=== PATIENT | male | born 1990 | race Caucasian/White ===

== ENCOUNTER 2024-04-09 23:12 | Emergency (ER) | payer SELFPAY ==
[~2024-04-09] VITALS: Ht 175.3 cm; Wt 73.0 kg
[2024-04-09 23:20] VITALS: TEMP 99; O2SAT 100
[2024-04-09] MEDS: TETANUS, DIPHTHERIA, PERTUSSIS VAC/PF 0.5ML (>10YR OLD) IM ONE (23:44)
[2024-04-09] MEDS: IBUPROFEN 600MG TABLET PO ONE (23:44)
[2024-04-10] MEDS ORDERED: BO1 TP (01:22)
[2024-04-10] MEDS ORDERED: IBUP-2029 MT (01:22)
[2024-04-10 01:33] VITALS: BP 128/94; PULSE 76; RESP 19
== END 2024-04-10 01:56 | disposition home or self-care (01) ==
LOC: ER 23:27
DX: S09.90XA Unspecified injury of head, initial encounter (principal); Y08.89XA Assault by other specified means, initial encounter; Y93.89 Activity, other specified; Y92.89 Other specified places as the place of occurrence of the external cause; Y99.8 Other external cause status
CPT/HCPCS: 90471; 90715; 99285

== ENCOUNTER 2024-08-25 22:33 | Emergency (ER) | payer SELFPAY ==
[~2024-08-25] VITALS: Ht 175.3 cm; Wt 73.0 kg
[~2024-08-25 22:33] MED LIST: BO1 TP; IBUP-2029 MT
[2024-08-25 22:45] VITALS: O2SAT 99
[2024-08-25 22:55] VITALS: BP 148/94; PULSE 102; RESP 18; TEMP 98.4; O2SAT 100
[2024-08-25] MEDS: HYDROCODONE/ACETAMINOPHEN 5/325MG TABLET PO ONE (23:30)
[2024-08-26] MEDS ORDERED: CEPH500T MT (02:08)
[2024-08-26] MEDS ORDERED: IBUP-2029 MT (02:08)
[2024-08-26] MEDS ORDERED: SULF1TAB48 MT (02:08)
== END 2024-08-26 02:28 | disposition home or self-care (01) ==
LOC: ER 22:33
DX: L02.811 Cutaneous abscess of head [any part, except face] (principal); Z79.899 Other long term (current) drug therapy
CPT/HCPCS: 99284; 70450; Z7610 ×2